=== PATIENT | female | born 1975 | race Caucasian/White ===

== ENCOUNTER 2022-01-11 12:21 | Emergency (ER) | payer OTHER ==
[2022-01-11 13:12] VITALS: BP 106/67; PULSE 100; RESP 18; TEMP 97.8
[2022-01-11] MEDS ORDERED: KETOROLAC TROMETHAMINE 30 MG/1 ML VIAL IM ONE (14:25)
[2022-01-11] MEDS ORDERED: KETOROLAC TROMETHAMINE 30 MG/1 ML VIAL ONE (14:29)
== END 2022-01-11 16:10 | disposition home or self-care (01) ==
LOC: JERFT 12:21 → JER 12:21 → JERFT 16:10
PROC: 0HQ1XZZ Repair Face Skin, External Approach (ICD-10-PCS; principal; 2022-01-11)
PROC: 3E0234Z Introduction of Serum, Toxoid and Vaccine into Muscle, Percutaneous Approach (ICD-10-PCS; 2022-01-11)
DX: S01.111A Laceration without foreign body of right eyelid and periocular area, initial encounter (principal); S00.91XA Abrasion of unspecified part of head, initial encounter; S09.90XA Unspecified injury of head, initial encounter; Y04.0XXA Assault by unarmed brawl or fight, initial encounter
CPT/HCPCS: 70450-TC; 70486-TC; 99284-25